=== PATIENT | male | born 1950 | race Caucasian/White ===

== ENCOUNTER 2019-05-13 06:05 | Inpatient (IN) | payer OTHER, MEDICARE ==
[2019-05-10 11:54] VITALS: BMI 29.9
--- NOTE | 2019-05-10 16:41 | HP ---
This is a patient referred to Dr. Sherwood by Dr. Birch for dyspnea on exertion. He was treated with some diuretics by Dr. Birch and then referred for further evaluation. Cardiovascular risk factors include history of hypertension, hyperlipidemia, and diabetes mellitus. The patient had a gastric bypass about 5 years ago and subsequent to that, his diabetes required no medicine as did his hypertension. However, about 2 years ago, his hypertension need to be treated with medication again. He had a cardiac echo from 2012 showing mild mitral regurgitation and a more recent cardiac echo showing mild mitral regurgitation with an EF of 45% to 50% with some diastolic dysfunction. There was exhv-oe-bocnsvab aortic valve regurgitation and no measurements for posterior wall thickness were recorded. His stress test showed an ejection fraction of 50% with anterior septal wall defect. PAST SURGICAL HISTORY: As mentioned included gastric sleeve resection in 2012. SOCIAL HISTORY: The patient is a nonsmoker, , accompanied by his . MEDICATIONS: Include; 1. Aspirin 81. 2. The new drug . 3. Escitalopram 10 mg daily. 4. Amlodipine 2.5 a day. 5. Loratadine as needed, 10 mg. 6. Prilosec 20 mg a day. ALLERGIES: HE REPORTS NO KNOWN ALLERGIES. PHYSICAL EXAMINATION: GENERAL: He is alert and cooperative gentleman, in no distress. VITAL SIGNS: Blood pressure 150/80. Weight 218, height 5 feet and 11 inches. NECK: No carotid bruits. LUNGS: Clear to auscultation. CARDIAC: Regular rate and rhythm and I did not appreciate any murmurs. ABDOMEN: Obese, soft, and nontender. EXTREMITIES: He has no edema and he has palpable pedal pulses bilaterally. NEUROLOGIC: Grossly intact. DIAGNOSTIC DATA: Cardiac catheterization shows significant LAD and diagonal disease with an irregular area in the high-grade proximal LAD suggesting perhaps an old dissection. The high diagonal has two significant lesions, the second of which is about 90%. Circumflex does not show any significant disease and the right coronary artery is normal. PLAN: At this time is for bypass grafting to the LAD, diagonal, and informed consent has been obtained. Job ID: [id number]
[2019-05-13] MEDS ORDERED: Norepinephrine 4 MG/4 ML VIAL ONE (06:27)
[2019-05-13] MEDS ORDERED: Nitroglycerin 50 MG/250 ML BOT 250 ML ONE (06:27)
[2019-05-13] MEDS ORDERED: Fentanyl 100 MCG/2 ML VIAL ONE (06:28)
[2019-05-13] MEDS ORDERED: Midazolam HCl 2 mg/2 ml Vial ONE (06:28)
[2019-05-13] MEDS ORDERED: Albumin 5% 500 ML ONE (06:33)
[2019-05-13 06:39] LABS: #Eosinphils 0.3 thou/uL (0.0-0.7); #Lymphocytes 1.7 thou/uL (1.20-3.40); #Monocytes 0.4 thou/uL (0.11-0.59); #Neutrophils 3.6 thou/uL (1.40-6.50); %Basophils 0.7 % (0.0-1.0); %Eosinophils 4.5 % (0.0-10.0); %Lymphocytes 28.6 % (21.0-51.0); %Monocytes 6.9 % (0.0-10.0); %Neutrophils 59.4 % (42.0-75.0); Mean Corpuscular HGB CONC 34.6 g/dL (32.0-36.0); Mean Corpuscular Hemoglobin 33.3 pg (27.0-31.0); Mean Corpuscular Volume 96.3 fL (78.0-98.0); Mean Platelet Volume 6.7 fL (7.4-10.4); Platelet Count 190 thou/uL (130-400); RBC Distribution Width 11.9 % (11.5-14.5)
[2019-05-13] MEDS ORDERED: Heparin 10,000 UNITS/1 ML VIAL 30,000 UNITS in Sodium Chloride 0.9% 1,000 ML FS SCH (06:45)
[2019-05-13 06:59] LABS: Anion Gap 12 mmol/L (10-20); BUN (Urea Nitrogen) 18 mg/dL (8.4-25.7); Calc. Creatinine Clearance 114 mL/min (70-130); Calcium 9.4 mg/dL (7.8-10.44); Carbon Dioxide 26 mmol/L (23-31); Chloride 101 mmol/L (98-107); Estimated GFR-MDRD 88; Glucose 110 mg/dL (80-115); Sodium 135 mmol/L (136-145)
[2019-05-13] MEDS ORDERED: Ketamine 50 MG/ML (10ML VIAL) ONE (07:14)
[2019-05-13] MEDS ORDERED: Papaverine 60 MG/2 ML VIAL ONE (08:55)
[2019-05-13] MEDS ORDERED: Sodium Bicarb 50 MEQ/50 ML Abboject 8.4% SYRINGE ONE (08:55)
[2019-05-13] MEDS ORDERED: Calcium Chloride 1 GM/10 ML Abboject SYRINGE ONE (08:55)
[2019-05-13] MEDS ORDERED: Aminocaproic Acid 5 GM/20 ML VIAL ONE (08:55)
[2019-05-13] MEDS ORDERED: Protamine Sulfate 250 MG/25 ML VIAL ONE (08:55)
[2019-05-13] MEDS ORDERED: Heparin 30,000 units/30 ml VIAL ONE (08:55)
[2019-05-13] MEDS ORDERED: Lidocaine 1% PF 5 ML VIAL ONE (08:55)
[2019-05-13] MEDS ORDERED: PROPOFOL 200 MG/20 ML VIAL ONE (08:55)
[2019-05-13] MEDS ORDERED: Magnesium Sulfate 1 GM/2 ML VIAL ONE (08:55)
[2019-05-13] MEDS ORDERED: Potassium Chloride 60 MEQ/30 ML VIAL ONE (08:55)
[2019-05-13] MEDS ORDERED: Vecuronium 10 MG VIAL ONE (08:55)
[2019-05-13] MEDS ORDERED: Heparin 5,000 UNITS/ML VIAL ONE (08:55)
[2019-05-13] MEDS ORDERED: Rocuronium Bromide 10 MG/ML (10ML VIAL) ONE (08:55)
[2019-05-13] MEDS ORDERED: Thrombin 5000 UNITS/5 ML VIAL ONE (08:55)
[2019-05-13] MEDS ORDERED: Glycopyrrolate 0.2 MG/ML 5 ML SYRINGE ONE (08:55)
[2019-05-13] MEDS ORDERED: Cardioplegic Soln 1,000 ML BAG ONE (08:55)
[2019-05-13] MEDS ORDERED: Lidocaine 2% PF 5 ML VIAL ONE (08:55)
[2019-05-13] MEDS ORDERED: Insulin Regular 300 UNITS/3 ML VIAL ONE (09:36)
[2019-05-13] MEDS ORDERED: PROPOFOL 40 ML ONE (10:33)
[2019-05-13] MEDS ORDERED: Bisacodyl 10 MG SUPP PR PRN (10:56)
[2019-05-13] MEDS ORDERED: niCARdipine 25 MG in Sodium Chloride 0.9% 250 ML 250 ML IVPB PRN (10:56)
[2019-05-13] MEDS ORDERED: Mag-Al 1200 mg/1200 mg/30 ML UDCUP PO PRN (10:56)
[2019-05-13] MEDS ORDERED: Morphine 2 MG/ML SYRINGE SLOW IVP PRN (10:56)
[2019-05-13] MEDS ORDERED: HYDROcodone/Acetaminophen 5/325 mg Tablet PO PRN (10:56)
[2019-05-13] MEDS ORDERED: Norepinephrine 8 MG/0.9% NS 250 ML IVPB PRN (10:56)
[2019-05-13] MEDS ORDERED: Bisacodyl 5 MG TAB PO PRN (10:56)
[2019-05-13] MEDS ORDERED: Fentanyl 100 MCG/2 ML VIAL SLOW IVP PRN ×2 (10:56)
[2019-05-13] MEDS ORDERED: Nitroglycerin 50 MG/250 ML BOT 250 ML IVPB PRN (10:56)
[2019-05-13] MEDS ORDERED: Promethazine HCl 25 MG/ML VIAL IM PRN (10:56)
[2019-05-13] MEDS ORDERED: Potassium Chloride 20 MEQ/100 ML PREMIX BAG IVPB PRN (10:56)
[2019-05-13] MEDS ORDERED: hydrALAZINE 20 MG/ML VIAL SLOW IVP PRN (10:56)
[2019-05-13] MEDS ORDERED: DOPamine 400 MG/D5W 250 ML 250 ML IVPB PRN (10:56)
[2019-05-13] MEDS ORDERED: Hetastarch 6% 500 ML 500 ML IVPB PRN (10:56)
[2019-05-13] MEDS ORDERED: Post-Op Insulin Drip Protocol IVPB ONE (10:56)
[2019-05-13] MEDS ORDERED: Acetaminophen 325 MG TAB PO PRN (10:56)
[2019-05-13] MEDS ORDERED: Guaifenesin DM 100-10/5 ML UDCUP PO PRN (10:56)
[2019-05-13] MEDS ORDERED: Ondansetron PF 4 MG/2 ML Vial IVP PRN (10:56)
[2019-05-13] MEDS ORDERED: Magnesium 2 GM/50 ML 2 GM in Premix Bag 1 BAG IVPB SCH (11:00)
[2019-05-13 11:05] LABS: Base Excess (BEa) 0.8 mEq/L (-2.0 to +3.0); CO2 Tension 38.2 mmHg (35.0-45.0); Carboxyhemoglobin (COHb) 0.4 gm% (0.0-3.0); Hemoglobin (Hb) 11.8 g/dL (14.0-18.0); O2 Tension (PaO2) 186.6 mmHg (> 80.0); pH, Arterial 7.43 (7.35-7.45)
[2019-05-13 11:07] LABS: Puncture Site ALINE
[2019-05-13] MEDS ORDERED: HUMULIN R 100 UNITS in Sodium Chloride 0.9% 100 ML IVPB SCH (11:10)
[2019-05-13] MEDS ORDERED: Dextrose 5% in Water 1,000 ML IV PRN (11:10)
[2019-05-13] MEDS ORDERED: Dextrose 50% Abboject 50 ML SYRINGE SLOW IVP PRN (11:10)
[2019-05-13] MEDS: Lactated Ringer's 1,000 ML IV SCH (11:22)
[2019-05-13 11:23] LABS: #Eosinphils 0.2 thou/uL (0.0-0.7); #Lymphocytes 1.3 thou/uL (1.20-3.40); #Monocytes 0.6 thou/uL (0.11-0.59); #Neutrophils 8.5 thou/uL (1.40-6.50); %Basophils 0.4 % (0.0-1.0); %Eosinophils 1.7 % (0.0-10.0); %Lymphocytes 12.5 % (21.0-51.0); %Monocytes 5.2 % (0.0-10.0); %Neutrophils 80.2 % (42.0-75.0); Hemoglobin 11.5 g/dL (14.0-18.0); Mean Corpuscular HGB CONC 34.4 g/dL (32.0-36.0); Mean Corpuscular Hemoglobin 33.2 pg (27.0-31.0); Mean Corpuscular Volume 96.4 fL (78.0-98.0); Mean Platelet Volume 6.5 fL (7.4-10.4); Platelet Count 141 thou/uL (130-400); RBC Distribution Width 11.7 % (11.5-14.5); Red Blood Cell (RBC) Count 3.45 mill/uL (4.70-6.10); White Blood Cell (WBC) Count 10.6 thou/uL (4.8-10.8)
[2019-05-13 11:27] LABS: INR-International Normal Ratio 1.1; PTT 25.2 SEC (22.9-36.1); Prothrombin Time 14.5 SEC (12.0-14.7)
[2019-05-13] MEDS: Ketorolac Tromethamine 30 MG/ML VIAL IVP SCH ×3 (11:27→23:11)
[2019-05-13 11:49] LABS: Anion Gap 10 mmol/L (10-20); BUN (Urea Nitrogen) 17 mg/dL (8.4-25.7); Calc. Creatinine Clearance 122 mL/min (70-130); Calcium 7.7 mg/dL (7.8-10.44); Carbon Dioxide 24 mmol/L (23-31); Chloride 107 mmol/L (98-107); Estimated GFR-MDRD Greater than 90; Glucose 114 mg/dL (80-115); Potassium 4.1 mmol/L (3.5-5.1); Sodium 137 mmol/L (136-145)
--- NOTE | 2019-05-13 12:27 | OP ---
DATE OF PROCEDURE: 05/13/2019 PREOPERATIVE DIAGNOSIS: Coronary artery disease. POSTOPERATIVE DIAGNOSIS: Coronary artery disease. PROCEDURES PERFORMED: Coronary artery bypass graft x2, left internal mammary artery good flow to a 2 mm left anterior descending, saphenous vein good quality to a 1.5 mm diagonal. DIRECTOR OF CORPORATE COMMUNICATIONS: Mike. TRANSFUSION: None. DESCRIPTION OF PROCEDURE: After adequate anesthesia had been obtained, the patient was prepped and draped. Dr. Mckeon did an open vein harvest of the left greater saphenous vein and I performed a median sternotomy. The left internal mammary artery was harvested, following which, the patient was heparinized. The patient required an additional 20,000 units of heparin after his initial 29,000. Mammary was treated with papaverine and passed posterior to a very prominent thymus gland and his lungs are somewhat hyperinflated and crossed the midline with the cardiac structures being deep to this. Pericardium was opened and there was symphysis between the heart and the pericardium from previous pericarditis. Sharply, this was mobilized to allow traction sutures to be placed in the pericardium. Aorta and right atrium were cannulated, following which, cardiopulmonary bypass was begun. The aorta was cross-clamped and after a liter of cold blood cardioplegia had been given, further adhesions were taken down sharply and bluntly. Diagonal and LAD were opened and saphenous vein and TIWARI were anastomosed to these two vessels, following which the cross-clamp was removed. The partial occluding clamp placed and a single vein anastomosis performed on the aortic root and marked with a ring. The patient was then fully rewarmed and weaned from cardiopulmonary bypass. Cannula was removed and the aortic cannulation site was secured with a 4-0 Prolene suture. Mediastinal and left pleural drains were placed, following which the sternum was reapproximated with #7 interrupted wire. Vancomycin paste was used on the sternal edges, platelet-rich blood and platelet-poor plasma. Subcutaneous tissue and skin were closed in layers. Job ID: [id number]
--- NOTE | 2019-05-13 12:39 | RAD ---
PORTABLE CHEST: Date: 05/13/2019 HISTORY: Postop sternotomy. COMPARISON: 07/19/2012. FINDINGS: Postop sternotomy change. Central line overlies the right atrium. Chest drainage catheters. ET tube. Lungs appear clear with no infiltrate or vascular congestion. Right rib deformities from old fracture s again noted. IMPRESSION: No acute lung process. POS: [facility]
[2019-05-13] MEDS: Insulin Regular 300 UNITS/3 ML VIAL SC PRN ×3 (12:54→20:30)
--- NOTE | 2019-05-13 13:51 | PDOC.CPN ---
- Subjective Date: 05/13/19 Time: 12:15 - Review of Systems ROS unobtainable: due to endotracheal tube - Objective Allergies/Adverse Reactions: Allergies Allergy/AdvReac Type Severity Reaction Status Date / Time No Known Drug Allergies Allergy Verified 05/10/19 11:54 Visit Medications: Current Medications Acetaminophen (Tylenol) 650 mg PO Q6H PRN PRN Reason: Headache/Fever Or Mild Pain Hydrocodone Bitart/Acetaminophen ([place] 5/325) 1 tab PO Q4H PRN PRN Reason: Moderate Pain (4-6) Hydrocodone Bitart/Acetaminophen ([place] 5/325) 2 tab PO Q4H PRN PRN Reason: Severe Pain (7-10) Al Hydroxide/Mg Hydroxide (Maalox) 30 ml PO Q4H PRN PRN Reason: Indigestion Albumin Human (Albumin 5%) 12.5 gm IVPB Q6H PRN PRN Reason: To Maintain SBP> 90 mmHG Stop: 05/14/19 10:57 Last Admin: 05/13/19 12:15 Dose: 12.5 gm Albumin Human (Albumin 5%) 25 gm IVPB Q6H PRN PRN Reason: To Maintain SBP > 90 mmHG Stop: 05/14/19 10:57 Albuterol/Ipratropium (Duoneb) 3 ml NEB Q6H PRN PRN Reason: SHORTNESS OF BREATH Aspirin (Aspirin) 325 mg PO DAILY [facility] Bisacodyl (Dulcolax) 10 mg PO Q12H PRN PRN Reason: Constipation Bisacodyl (Dulcolax) 10 mg UT Q12H PRN PRN Reason: Constipation Dextrose/Water (Dextrose 50%) 25 gm SLOW IVP PRN PRN PRN Reason: PER HYPOGLYCEMIC PROTOCOL Famotidine (Pepcid) 20 mg SLOW IVP Q12HR [facility] Fentanyl (Sublimaze) 25 mcg SLOW IVP Q2H PRN PRN Reason: Moderate Pain (4-6) Stop: 05/15/19 10:47 Fentanyl (Sublimaze) 50 mcg SLOW IVP Q2H PRN PRN Reason: Severe Pain (7-10) Stop: 05/15/19 10:47 Glucagon (Glucagon) 1 mg SC PRN PRN PRN Reason: PER HYPOGLYCEMIC PROTOCOL Guaifenesin/Dextromethorphan (Robitussin Dm) 15 ml PO Q4H PRN PRN Reason: Cough Hydralazine HCl (Apresoline) 10 mg SLOW IVP Q6H PRN PRN Reason: To Maintain SBP< 140mmHG Cefazolin Sodium/Dextrose 2 gm (/ Device) 50 mls @ 100 mls/hr IVPB Q8H [facility] Stop: 05/14/19 07:29 Dopamine HCl/Dextrose (Dopamine 400 Mg/D5w 250 Ml) 250 mls @ 0 mls/hr IVPB PRN PRN; Protocol PRN Reason: To maintain SBP > 90 mmHG Hetastarch/Sodium Chloride (Hespan) 500 mls @ 0 mls/hr IVPB PRN PRN PRN Reason: To Maintain SBP > 90mmHg Stop: 05/14/19 10:47 Lactated Ringer's (Lactated Ringer's) 1,000 mls @ 75 mls/hr IV .[id number] [facility] Last Admin: 05/13/19 11:22 Dose: 1,000 mls Norepinephrine Bitartrate (Levophed) 250 mls @ 0 mls/hr IVPB PRN PRN; Protocol PRN Reason: To maintain SBP > 90 mmHG Nicardipine HCl 25 mg/ Sodium (Chloride) 260 mls @ 0 mls/hr IVPB INF PRN; Protocol PRN Reason: To Maintain SBP< 140mmHG Nitroglycerin/Dextrose (Nitroglycerin 50 Mg/250 Ml Bot) 250 mls @ 0 mls/hr IVPB PRN PRN; Protocol PRN Reason: To Maintain SBP< 140mmHG Insulin Human Regular 100 (units/ Sodium Chloride) 101 mls @ 0 mls/hr IVPB INF [facility]; Protocol Dextrose/Water (D5w) 1,000 mls @ 0 mls/hr IV INF PRN PRN Reason: PRN HYPOGLYCEMIC PROTOCOL Insulin Glargine (Lantus) 0 units SC ONE PRN PRN Reason: PER OPEN HEART ORDERS Stop: 05/14/19 11:11 Insulin Human Regular (Humulin R) 0 units SC Q4H PRN; Protocol PRN Reason: POST OP SLIDING SCALE Last Admin: 05/13/19 12:54 Dose: 2 unit Ketorolac Tromethamine (Toradol) 15 mg IVP Q6HR [facility] Stop: 05/14/19 12:01 Last Admin: 05/13/19 11:27 Dose: 15 mg Morphine Sulfate (Morphine) 2 mg SLOW IVP Q15MIN PRN PRN Reason: Severe Pain (7-10) Ondansetron HCl (Zofran) 4 mg IVP Q6H PRN PRN Reason: Nausea/Vomiting Polyethylene Glycol (Miralax) 17 gm PO DAILY [facility] Potassium Chloride (Kcl) 20 meq IVPB PRN PRN PRN Reason: K level </= 4.0 Last Admin: 05/13/19 11:51 Dose: 20 meq Promethazine HCl (Phenergan) 6.25 mg IM Q4H PRN PRN Reason: Nausea/Vomiting Vital Signs & Weight: Vital Signs Temp Pulse Resp BP Pulse Ox 05/13/19 12:00 15 05/13/19 11:00 96.6 F L 05/13/19 10:58 46 L 13 90/53 L 99 05/13/19 10:56 96.6 F L 47 L 12 99 Weight 215 lb - Physical Exam General: other (pt. back from the OR after CABG LAD,Diag.) HEENT: normocephaly Neck: no JVD/HJR Cardiac: regular rate and rhythm, no murmur, bradycardia Lungs: clear to auscultation, ventilated respirations Abdomen: unremarkable Extremities: no edema - Labs Result Diagrams: 05/13/19 11:07 05/13/19 11:07 - Telemetry Sinus rhythms and dysrhythmias: sinus bradycardia (< 50 bpm) - Assessment/Plan Assessment/Plan: 1. CAD- s/p CABG today. LAD, Diag bypass. 2. AI- stable. 3. HTN-stable. 4. Bradycardia. Hold betablockers. May eventually need a pacemaker.
[2019-05-13] MEDS: CEFAZOLIN 2 GM in Premix Bag 1 BAG IVPB SCH ×2 (15:50→23:12)
[2019-05-13 15:53] LABS: Base Excess (BEa) 1.1 mEq/L (-2.0 to +3.0); CO2 Tension 42.5 mmHg (35.0-45.0); Calcium, Ionized 1.12 mmol/L (1.12-1.30); Carboxyhemoglobin (COHb) 0.7 gm% (0.0-3.0); Hemoglobin (Hb) 12.5 g/dL (14.0-18.0); O2 Tension (PaO2) 113.3 mmHg (> 80.0); Potassium - ABG Lab 4.34 mmol/L (3.70-5.30); pH, Arterial 7.41 (7.35-7.45)
[2019-05-13 16:14] LABS: ALV-art Gradient 118.775 (0-20); Puncture Site ALINE
[2019-05-13 16:55] LABS: Hemoglobin 12.1 g/dL (14.0-18.0)
[2019-05-13 17:10] LABS: Potassium 4.2 mmol/L (3.5-5.1)
[2019-05-13] MEDS: HYDROcodone/Acetaminophen 5/325 mg Tablet PO PRN (20:45)
[2019-05-13] MEDS ORDERED: Famotidine/PF 20 mg/2ml Vial SLOW IVP SCH (21:00)
--- NOTE | 2019-05-13 22:00 | CON ---
DATE OF CONSULTATION: 05/13/2019 HISTORY OF PRESENT ILLNESS: Mr. Walton is a 68-year-old male who has undergone coronary artery bypass grafting. He was examined after he was admitted to the critical care unit. He is waking up from anesthesia. We were consulted because of his presence to critical care unit. PAST MEDICAL HISTORY: Remarkable for; 1. Gastric bypass 5 years ago with resolution of diabetes and hypertension for a while, but then apparently his hypertension had to be treated. 2. History of mitral regurgitation and decreased ejection fraction with [id number] aortic valve regurgitation. 3. Recent cardiac catheterization with results noted in Dr. Barker's note. FAMILY HISTORY: Negative for lung disease in early age. SOCIAL HISTORY: Not obtainable. REVIEW OF SYSTEMS: 10 point review of systems completed, not obtainable. PHYSICAL EXAMINATION: VITAL SIGNS: His heart rate was in the 70s, respiratory rate was in the teens, blood pressure was stable at 127/48. GENERAL: He is awakening, but would not follow any commands. He did not make eye contact. EYES: His sclerae are anicteric. NECK: Supple. LUNGS: Clear. HEART: Regular rhythm. ABDOMEN: Soft. EXTREMITIES: Without edema. LABORATORY DATA: White count 10.6, hemoglobin 11.5, platelets 141. Sodium 137, potassium 4.1, chloride 107, bicarb 24, BUN 17, creatinine 0.81. PH 7.41, CO2 of 42, and PO2 of 113 on CPAP this afternoon. IMPRESSION: Status post coronary artery bypass grafting. Chest x-ray shows no infiltrates or pulmonary edema or pleural effusions. I suspect he will wean per protocol. TIME SPENT: This is a 50-minute consult, with greater than 50% of the time was spent on the unit coordinating care. Job ID: [id number] MTDD
[2019-05-14] MEDS: Lactated Ringer's 1,000 ML IV SCH (01:21)
[2019-05-14 04:06] LABS: #Eosinphils 0.1 thou/uL (0.0-0.7); #Lymphocytes 1.5 thou/uL (1.20-3.40); #Monocytes 0.7 thou/uL (0.11-0.59); #Neutrophils 5.9 thou/uL (1.40-6.50); %Basophils 0.2 % (0.0-1.0); %Eosinophils 0.7 % (0.0-10.0); %Lymphocytes 18.2 % (21.0-51.0); %Monocytes 8.5 % (0.0-10.0); %Neutrophils 72.4 % (42.0-75.0); Hemoglobin 11.4 g/dL (14.0-18.0); Mean Corpuscular HGB CONC 34.2 g/dL (32.0-36.0); Mean Corpuscular Hemoglobin 33.5 pg (27.0-31.0); Mean Corpuscular Volume 97.9 fL (78.0-98.0); Mean Platelet Volume 6.7 fL (7.4-10.4); Platelet Count 126 thou/uL (130-400); RBC Distribution Width 11.8 % (11.5-14.5); White Blood Cell (WBC) Count 8.1 thou/uL (4.8-10.8)
[2019-05-14 04:27] LABS: Anion Gap 10 mmol/L (10-20); BUN (Urea Nitrogen) 14 mg/dL (8.4-25.7); Calc. Creatinine Clearance 131 mL/min (70-130); Calcium 8.2 mg/dL (7.8-10.44); Carbon Dioxide 28 mmol/L (23-31); Chloride 103 mmol/L (98-107); Estimated GFR-MDRD Greater than 90; Glucose 110 mg/dL (80-115); Potassium 4.1 mmol/L (3.5-5.1); Sodium 137 mmol/L (136-145)
[2019-05-14] MEDS: HYDROcodone/Acetaminophen 5/325 mg Tablet PO PRN ×5 (04:56→23:24)
[2019-05-14] MEDS: Ketorolac Tromethamine 30 MG/ML VIAL IVP SCH (04:56)
[2019-05-14] MEDS: CEFAZOLIN 2 GM in Premix Bag 1 BAG IVPB SCH (06:25)
--- NOTE | 2019-05-14 07:13 | PRG ---
DATE OF SERVICE: The patient is afebrile. Blood pressure 120 to 130, heart rate 70 to 80. He is up in the chair this morning and denies any significant discomfort. His chest tube output is between 270 and 300 since surgery. His hemoglobin is greater than 11. Creatinine normal. His lungs are clear to auscultation. At this time, the patient is stable to transfer to the floor. Job ID: [id number]
[2019-05-14] MEDS ORDERED: Nitroglycerin 0.4 MG TAB (25 Tab Bottle) SL PRN (07:20)
[2019-05-14] MEDS ORDERED: Bisacodyl 5 MG TAB PO PRN (07:20)
[2019-05-14] MEDS ORDERED: Mag-Al 1200 mg/1200 mg/30 ML UDCUP PO PRN (07:20)
[2019-05-14] MEDS ORDERED: Fentanyl 100 MCG/2 ML VIAL SLOW IVP PRN ×2 (07:20)
[2019-05-14] MEDS ORDERED: Ondansetron PF 4 MG/2 ML Vial IVP PRN (07:20)
[2019-05-14] MEDS ORDERED: Mineral Oil ENEMA PR PRN (07:20)
[2019-05-14] MEDS ORDERED: Bisacodyl 10 MG SUPP PR PRN (07:20)
[2019-05-14] MEDS ORDERED: Acetaminophen 325 MG TAB PO PRN (07:20)
[2019-05-14] MEDS ORDERED: Milk Of Magnesia 30 ML UDCUP PO PRN (07:20)
[2019-05-14] MEDS ORDERED: Guaifenesin DM 100-10/5 ML UDCUP PO PRN (07:20)
[2019-05-14] MEDS ORDERED: Insulin Regular 300 UNITS/3 ML VIAL SC PRN (07:22)
[2019-05-14] MEDS ORDERED: Dextrose 50% Abboject 50 ML SYRINGE SLOW IVP PRN (07:22)
[2019-05-14] MEDS ORDERED: Dextrose 5% in Water 1,000 ML IV PRN (07:22)
[2019-05-14] MEDS ORDERED: HUMULIN R 100 UNITS in Sodium Chloride 0.9% 100 ML IVPB SCH (07:22)
--- NOTE | 2019-05-14 07:22 | RAD ---
SINGLE VIEW CHEST: Date: 05/14/2019 COMPARISON: 05/13/2019. HISTORY: Status post open heart surgery. FINDINGS: Single view of the chest shows an enlarged cardiomediastinal silhouette. The patient is status post s ternotomy. Endotracheal tube has been removed. Central venous catheter is unchanged in position. Left -sided chest tube without evidence of pneumothorax. IMPRESSION: Stable exam status post extubation. POS: [facility]
[2019-05-14] MEDS: Aspirin 325 mg Enteric Coated Tablet PO SCH (08:24)
[2019-05-14] MEDS: Famotidine 20 MG TAB PO SCH ×2 (08:24→21:23)
[2019-05-14] MEDS: Polyethylene Glycol 3350 17 GM Packet PO SCH (08:25)
[2019-05-14] MEDS ORDERED: Prevnar 13-Val Conj/PF 0.5 ML SYRINGE IM ONE (09:00)
[2019-05-14] MEDS ORDERED: Polyethylene Glycol 3350 17 GM Packet PO SCH (09:00)
[2019-05-14] MEDS ORDERED: Aspirin 325 MG TAB PO SCH (09:00)
[2019-05-14] MEDS ORDERED: Amlodipine 5 MG TAB PO SCH ×3 (10:30→11:00)
--- NOTE | 2019-05-14 10:34 | PDOC.CPN ---
- Subjective Date: 05/14/19 Time: 10:30 - Review of Systems General: reports: fever/chills, fatigue Respiratory: reports: cough, congestion, shortness of breath Cardiovascular: reports: chest pain, edema, orthopnea Gastrointestinal: reports: nausea, vomiting, abd pain Musculoskeletal: reports: pain, swelling Neurological: reports: numbness, weakness - Objective Allergies/Adverse Reactions: Allergies Allergy/AdvReac Type Severity Reaction Status Date / Time No Known Drug Allergies Allergy Verified 05/10/19 11:54 Visit Medications: Current Medications Acetaminophen (Tylenol) 650 mg PO Q6H PRN PRN Reason: Headache/Fever/Pain (1-3) Hydrocodone Bitart/Acetaminophen ([place] 5/325) 1 tab PO Q4H PRN PRN Reason: Moderate Pain (4-6) Last Admin: 05/14/19 09:11 Dose: 1 tab Hydrocodone Bitart/Acetaminophen ([place] 5/325) 2 tab PO Q4H PRN PRN Reason: Severe Pain (7-10) Al Hydroxide/Mg Hydroxide (Maalox) 30 ml PO Q4H PRN PRN Reason: Indigestion Albuterol/Ipratropium (Duoneb) 3 ml NEB Q6H PRN PRN Reason: Respiratory Distress Amlodipine Besylate (Norvasc) 2.5 mg PO DAILY [facility] Amlodipine Besylate (Norvasc) 2.5 mg PO NOW [facility] Stop: 05/14/19 12:00 Aspirin (Ecotrin) 325 mg PO DAILY [facility] Last Admin: 05/14/19 08:24 Dose: 325 mg Bisacodyl (Dulcolax) 10 mg PO Q12H PRN PRN Reason: Constipation Bisacodyl (Dulcolax) 10 mg MS Q12H PRN PRN Reason: Constipation Dextrose/Water (Dextrose 50%) 25 gm SLOW IVP PRN PRN PRN Reason: PER HYPOGLYCEMIC PROTOCOL Famotidine (Pepcid) 20 mg PO BID [facility] Last Admin: 05/14/19 08:24 Dose: 20 mg Fentanyl (Sublimaze) 25 mcg SLOW IVP Q2H PRN PRN Reason: Moderate breakthrough pain Stop: 05/16/19 07:21 Fentanyl (Sublimaze) 50 mcg SLOW IVP Q2H PRN PRN Reason: Severe breakthrough pain Stop: 05/16/19 07:21 Furosemide (Lasix) 40 mg PO DAILY [facility] Glucagon (Glucagon) 1 mg SC PRN PRN PRN Reason: PER HYPOGLYCEMIC PROTOCOL Guaifenesin/Dextromethorphan (Robitussin Dm) 15 ml PO Q4H PRN PRN Reason: Cough Insulin Human Regular 100 (units/ Sodium Chloride) 101 mls @ 0 mls/hr IVPB INF [facility]; Protocol Dextrose/Water (D5w) 1,000 mls @ 0 mls/hr IV INF PRN PRN Reason: PRN HYPOGLYCEMIC PROTOCOL Insulin Glargine (Lantus) 0 units SC ONE PRN PRN Reason: PER OPEN HEART ORDERS Stop: 05/15/19 07:23 Insulin Human Regular (Humulin R) 0 units SC Q4H PRN; Protocol PRN Reason: POST OP SLIDING SCALE Magnesium Hydroxide (Milk Of Magnesium) 30 ml PO Q12H PRN PRN Reason: Constipation Mineral Oil (Fleet Mineral Oil) 133 ml MS DAILYPRN PRN PRN Reason: Constipation Nitroglycerin (Nitrostat) 0.4 mg SL Q5MIN PRN PRN Reason: Chest Pain Ondansetron HCl (Zofran) 4 mg IVP Q6H PRN PRN Reason: Nausea/Vomiting Polyethylene Glycol (Miralax) 17 gm PO DAILY [facility] Last Admin: 05/14/19 08:25 Dose: 17 gm Potassium Chloride (Klor-Con 10) 10 meq PO QAM-[facility] Vital Signs & Weight: Vital Signs Temp Pulse Pulse Pulse Resp BP BP 05/14/19 09:39 60 62 162/82 H 159/83 H 05/14/19 09:28 97.8 F 60 18 05/14/19 08:00 98.5 F 05/14/19 07:03 BP Pulse Ox Pulse Ox Pulse Ox 05/14/19 09:39 97 96 05/14/19 09:28 162/82 H 98 05/14/19 08:00 96 05/14/19 07:03 96 Weight 232 lb 12.93 oz - Quality Measures CV meds: Beta Varinder: No (pt. has bradycardia), JOSEFINA/ARB: Yes, Statin: Yes, ASA : Yes - Physical Exam HEENT: normocephaly Neck: supple neck, no JVD/HJR Cardiac: regular rate and rhythm, no murmur Lungs: clear to auscultation Neuro: grossly intact Abdomen: unremarkable Extremities: no edema Musculoskeletal: normal range of motion (sternum stable.) - Labs Result Diagrams: 05/14/19 03:45 05/14/19 03:45 - Assessment/Plan Assessment/Plan: 1. CAD. S/P CABG. LAD,diag. 2. HTN. Start norvasc. Hold betablockers due to bradycardia. 3. Bradycardia. Asymptomatic. 4. Start statins.
[2019-05-14] MEDS: Amlodipine 5 MG TAB PO SCH (11:35)
[2019-05-15] MEDS: HYDROcodone/Acetaminophen 5/325 mg Tablet PO PRN ×4 (03:50→18:27)
--- NOTE | 2019-05-15 07:11 | PRG ---
DATE OF SERVICE: 05/15/2019 SUBJECTIVE: He is now postoperative day #2 following coronary artery bypass grafting x2 to the LAD diagonal. He had no laboratory values. His sugars have been satisfactory. His blood pressure has been up slightly in the 150 to 170 range with a heart rate in the 60s, sinus rhythm. Chest tube output was minimal and his two chest drains were removed today. His weight is 232 compared to 215. Lungs are clear. Chest dressing is dry. PLAN: Today shower. Rehab. Begin oral Lasix and start low-dose lisinopril. As noted by Dr. Sherwood, hold beta-blockers for now. Job ID: [id number]
--- NOTE | 2019-05-15 08:22 | PDOC.CPN ---
- Subjective Date: 05/15/19 Time: 08:25 Interval history: The pt seen and examined. No overnight events. No cardiac complaints. He had 1 episode of bad cough spell yesterday. - Objective Allergies/Adverse Reactions: Allergies Allergy/AdvReac Type Severity Reaction Status Date / Time No Known Drug Allergies Allergy Verified 05/10/19 11:54 Visit Medications: Current Medications Acetaminophen (Tylenol) 650 mg PO Q6H PRN PRN Reason: Headache/Fever/Pain (1-3) Hydrocodone Bitart/Acetaminophen ([place] 5/325) 1 tab PO Q4H PRN PRN Reason: Moderate Pain (4-6) Last Admin: 05/14/19 19:02 Dose: 1 tab Hydrocodone Bitart/Acetaminophen ([place] 5/325) 2 tab PO Q4H PRN PRN Reason: Severe Pain (7-10) Last Admin: 05/15/19 03:50 Dose: 2 tab Al Hydroxide/Mg Hydroxide (Maalox) 30 ml PO Q4H PRN PRN Reason: Indigestion Albuterol/Ipratropium (Duoneb) 3 ml NEB Q6H PRN PRN Reason: Respiratory Distress Amlodipine Besylate (Norvasc) 2.5 mg PO DAILY [facility] Last Admin: 05/14/19 11:35 Dose: 2.5 mg Aspirin (Ecotrin) 325 mg PO DAILY [facility] Last Admin: 05/14/19 08:24 Dose: 325 mg Bisacodyl (Dulcolax) 10 mg PO Q12H PRN PRN Reason: Constipation Bisacodyl (Dulcolax) 10 mg PA Q12H PRN PRN Reason: Constipation Dextrose/Water (Dextrose 50%) 25 gm SLOW IVP PRN PRN PRN Reason: PER HYPOGLYCEMIC PROTOCOL Famotidine (Pepcid) 20 mg PO BID [facility] Last Admin: 05/14/19 21:23 Dose: Not Given Fentanyl (Sublimaze) 25 mcg SLOW IVP Q2H PRN PRN Reason: Moderate breakthrough pain Stop: 05/16/19 07:21 Fentanyl (Sublimaze) 50 mcg SLOW IVP Q2H PRN PRN Reason: Severe breakthrough pain Stop: 05/16/19 07:21 Furosemide (Lasix) 40 mg PO DAILY [facility] Glucagon (Glucagon) 1 mg SC PRN PRN PRN Reason: PER HYPOGLYCEMIC PROTOCOL Guaifenesin/Dextromethorphan (Robitussin Dm) 15 ml PO Q4H PRN PRN Reason: Cough Insulin Human Regular 100 (units/ Sodium Chloride) 101 mls @ 0 mls/hr IVPB INF [facility]; Protocol Dextrose/Water (D5w) 1,000 mls @ 0 mls/hr IV INF PRN PRN Reason: PRN HYPOGLYCEMIC PROTOCOL Insulin Human Regular (Humulin R) 0 units SC Q4H PRN; Protocol PRN Reason: POST OP SLIDING SCALE Lisinopril (Zestril) 5 mg PO BID [facility] Magnesium Hydroxide (Milk Of Magnesium) 30 ml PO Q12H PRN PRN Reason: Constipation Mineral Oil (Fleet Mineral Oil) 133 ml [place] DAILYPRN PRN PRN Reason: Constipation Nitroglycerin (Nitrostat) 0.4 mg SL Q5MIN PRN PRN Reason: Chest Pain Ondansetron HCl (Zofran) 4 mg IVP Q6H PRN PRN Reason: Nausea/Vomiting Polyethylene Glycol (Miralax) 17 gm PO DAILY [facility] Last Admin: 05/14/19 08:25 Dose: 17 gm Potassium Chloride (Klor-Con 10) 10 meq PO QAM[facility] Vital Signs & Weight: Vital Signs Temp Pulse Resp BP Pulse Ox 05/15/19 07:46 95 05/15/19 07:24 98.5 F 68 18 169/82 H 94 L 05/15/19 03:40 98.6 F 64 20 152/79 H 92 L 05/15/19 00:18 97 Weight 232 lb 6.4 oz - Quality Measures CV meds: Beta Varinder: No (pt. has bradycardia), JOSEFINA/ARB: Yes, Statin: Yes, ASA : Yes - Physical Exam General: alert & oriented x3 HEENT: mucus membranes moist Neck: supple neck Cardiac: regular rate and rhythm, S1/S2 Lungs: decreased breath sounds Neuro: cranial nerve 2-12 intact - Labs Result Diagrams: 05/14/19 03:45 05/14/19 03:45 - Telemetry Sinus rhythms and dysrhythmias: sinus rhythm - Assessment/Plan Assessment/Plan: 1. CAD with S/P CABG on 05/13/2019 with TIWARI-LAD and SVG-diag - BBlocker is on hold due to bradycardia. On Lisinopirl, ASA, Statin. 2. HTN - Lisinopril 5mg BID was started from this AM; On Norvasc. Hold betablockers due to bradycardia. 3. Bradycardia. Asymptomatic. 4. HLD - LDL in 2018 was 161; not on Statin prior to this admission; will start statins. 5. Sleep Apnea - on Cpap at [facility] reviewed Pt. seen and eval. by me. I agree with the A/P by the OPERATIONS AND MAINTENANCE TECHNICIAN. Chest tubes removed this AM. Will d/c jailene. He has done well post CABG except for increased BP. Will increase josefina-i and Norvasc. Prob. home in 1-2 days. no arrhythmias.
[2019-05-15] MEDS: Aspirin 325 mg Enteric Coated Tablet PO SCH (09:26)
[2019-05-15] MEDS: Famotidine 20 MG TAB PO SCH ×2 (09:26→20:37)
[2019-05-15] MEDS: Furosemide 40 MG TAB PO SCH (09:26)
[2019-05-15] MEDS: Potassium Chloride 10 MEQ TAB PO SCH (09:26)
[2019-05-15] MEDS: Lisinopril 5 MG TAB PO SCH ×2 (09:27→20:38)
[2019-05-15] MEDS: Amlodipine 5 MG TAB PO SCH (09:27)
[2019-05-15] MEDS ORDERED: Amlodipine 5 MG TAB PO SCH (12:45)
[2019-05-15] MEDS: Polyethylene Glycol 3350 17 GM Packet PO SCH (13:10)
[2019-05-15] MEDS ORDERED: Atorvastatin Calcium 10 MG TAB PO SCH (21:00)
[2019-05-16] MEDS: HYDROcodone/Acetaminophen 5/325 mg Tablet PO PRN ×3 (03:34→13:11)
--- NOTE | 2019-05-16 07:17 | PRG ---
DATE OF SERVICE: 05/16/2019 SUBJECTIVE: The patient remains afebrile. He had one episode of transient drop in his blood pressure below 100 yesterday with the addition yesterday of Norvasc and lisinopril. Otherwise, he states he had a good day yesterday, ambulated without difficulty and rested well. He awakened about 3 a.m. this morning with some discomfort and was relieved with pain medicine. His lungs are clear this morning. His chest incision is clean and dry and his legs have no edema. His recorded weight is 224 compared with 215 on admission and down from 232. He remains on the Lasix. PLAN: Plan is for one more day and probably discharge in the morning if he is continuing to improve. Job ID: [id number]
[2019-05-16] MEDS: Polyethylene Glycol 3350 17 GM Packet PO SCH (08:28)
[2019-05-16] MEDS: Potassium Chloride 10 MEQ TAB PO SCH (08:28)
[2019-05-16] MEDS: Aspirin 325 mg Enteric Coated Tablet PO SCH (08:29)
[2019-05-16] MEDS: Famotidine 20 MG TAB PO SCH (08:29)
[2019-05-16] MEDS: Furosemide 40 MG TAB PO SCH (08:29)
[2019-05-16] MEDS ORDERED: Amlodipine 5 MG TAB PO SCH (09:00)
--- NOTE | 2019-05-16 13:12 | PDOC.CPN ---
- Subjective Date: 05/16/19 Time: 09:00 Interval history: The pt seen and examined. No overnight events. No cardiac complaints. - Objective Allergies/Adverse Reactions: Allergies Allergy/AdvReac Type Severity Reaction Status Date / Time No Known Drug Allergies Allergy Verified 05/10/19 11:54 Visit Medications: Current Medications Acetaminophen (Tylenol) 650 mg PO Q6H PRN PRN Reason: Headache/Fever/Pain (1-3) Hydrocodone Bitart/Acetaminophen ([place] 5/325) 1 tab PO Q4H PRN PRN Reason: Moderate Pain (4-6) Last Admin: 05/14/19 19:02 Dose: 1 tab Hydrocodone Bitart/Acetaminophen ([place] 5/325) 2 tab PO Q4H PRN PRN Reason: Severe Pain (7-10) Last Admin: 05/16/19 08:30 Dose: 2 tab Al Hydroxide/Mg Hydroxide (Maalox) 30 ml PO Q4H PRN PRN Reason: Indigestion Albuterol/Ipratropium (Duoneb) 3 ml NEB Q6H PRN PRN Reason: Respiratory Distress Amlodipine Besylate (Norvasc) 5 mg PO DAILY [facility] Last Admin: 05/16/19 08:29 Dose: 5 mg Aspirin (Ecotrin) 325 mg PO DAILY [facility] Last Admin: 05/16/19 08:29 Dose: 325 mg Atorvastatin Calcium (Lipitor) 10 mg PO HS [facility] Last Admin: 05/15/19 20:38 Dose: 10 mg Bisacodyl (Dulcolax) 10 mg PO Q12H PRN PRN Reason: Constipation Last Admin: 05/16/19 08:31 Dose: 10 mg Bisacodyl (Dulcolax) 10 mg VT Q12H PRN PRN Reason: Constipation Famotidine (Pepcid) 20 mg PO BID [facility] Last Admin: 05/16/19 08:29 Dose: 20 mg Furosemide (Lasix) 40 mg PO DAILY [facility] Last Admin: 05/16/19 08:29 Dose: 40 mg Glucagon (Glucagon) 1 mg SC PRN PRN PRN Reason: PER HYPOGLYCEMIC PROTOCOL Guaifenesin/Dextromethorphan (Robitussin Dm) 15 ml PO Q4H PRN PRN Reason: Cough Magnesium Hydroxide (Milk Of Magnesium) 30 ml PO Q12H PRN PRN Reason: Constipation Mineral Oil (Fleet Mineral Oil) 133 ml [place] DAILYPRN PRN PRN Reason: Constipation Nitroglycerin (Nitrostat) 0.4 mg SL Q5MIN PRN PRN Reason: Chest Pain Ondansetron HCl (Zofran) 4 mg IVP Q6H PRN PRN Reason: Nausea/Vomiting Polyethylene Glycol (Miralax) 17 gm PO DAILY [facility] Last Admin: 05/16/19 08:28 Dose: 17 gm Potassium Chloride (Klor-Con 10) 10 meq PO QAM-WM [facility] Last Admin: 05/16/19 08:28 Dose: 10 meq Vital Signs & Weight: Vital Signs Temp Pulse Pulse Pulse Resp BP BP 05/16/19 11:22 98.4 F 66 16 05/16/19 10:14 73 64 135/77 109/65 05/16/19 08:29 69 05/16/19 07:53 05/16/19 07:01 99.0 F 69 18 05/16/19 03:10 99.4 F 66 18 BP Pulse Ox Pulse Ox Pulse Ox 05/16/19 11:22 114/62 94 L 05/16/19 10:14 92 L 95 05/16/19 08:29 05/16/19 07:53 95 05/16/19 07:01 126/71 95 05/16/19 03:10 143/71 H 97 Weight 224 lb 11.2 oz - Quality Measures CV meds: Beta Varinder: No (pt. has bradycardia), JOSEFINA/ARB: Yes, Statin: Yes, ASA : Yes - Physical Exam General: alert & oriented x3 HEENT: mucus membranes moist Neck: supple neck Cardiac: regular rate and rhythm, S1/S2 Lungs: clear to auscultation, decreased breath sounds Neuro: cranial nerve 2-12 intact - Labs Result Diagrams: 05/14/19 03:45 05/14/19 03:45 - Telemetry Sinus rhythms and dysrhythmias: sinus rhythm - Assessment/Plan Assessment/Plan: 1. CAD with S/P CABG on 05/13/2019 with [id number] and SVG-diag - BBlocker is on hold due to bradycardia. On ASA, Statin. 2. HTN - On Norvasc. Hold betablockers due to bradycardia. 3. Bradycardia. Asymptomatic. 4. HLD - LDL in 2018 was 161; on Lipitor 10mg qd. Will increase to 20mg qd. 5. Sleep Apnea - on Cpap at [facility] reviewed Pt. seen and eval. by me. I agree with the A/P by the EXPEDITER.He is doing well post CABG. O2 sats are in the 90's on room air. From a cardiology standpoint he can be d/c'd today. F/U in 1 month in the office.
[2019-05-16 15:23] VITALS: BP 119/66; TEMP 98.1
--- NOTE | 2019-05-16 17:27 | DIS ---
DATE OF ADMISSION: 05/13/2019 DATE OF DISCHARGE: 05/16/2019 The patient was admitted following a cardiac [facility]. On Monday of this week, where he underwent coronary artery bypass grafting x2. His postoperative course was unremarkable and he was discharged home on postoperative day 3 on aspirin, amlodipine 5, atorvastatin 20, and Maxzide, resuming his home medication there. He also received a prescription for [place]. Discharge and followup instructions have been given. Job ID: [id number]
[2019-05-16] MEDS ORDERED: Atorvastatin Calcium 20 MG TAB PO SCH (21:00)
== END 2019-05-16 16:53 | disposition home or self-care (01) | DRG 236 ==
LOC: SURG A 06:05 → CCU 09:39 → 2NO 05-14 09:37
PROVIDERS: ADMIT Thoracic Surgery (Cardiothoracic Vascular Surgery); ATTEND Thoracic Surgery (Cardiothoracic Vascular Surgery)
PROC: 02100Z9 Bypass Coronary Artery, One Artery from Left Internal Mammary, Open Approach (ICD-10-PCS; principal; 2019-05-13)
PROC: 021009W Bypass Coronary Artery, One Artery from Aorta with Autologous Venous Tissue, Open Approach (ICD-10-PCS; 2019-05-13)
PROC: 06BQ0ZZ Excision of Left Saphenous Vein, Open Approach (ICD-10-PCS; 2019-05-13)
PROC: 5A1221Z Performance of Cardiac Output, Continuous (ICD-10-PCS; 2019-05-13)
DX: I25.10 Atherosclerotic heart disease of native coronary artery without angina pectoris (principal); I08.0 Rheumatic disorders of both mitral and aortic valves; I10 Essential (primary) hypertension; E11.9 Type 2 diabetes mellitus without complications; G47.30 Sleep apnea, unspecified; E78.5 Hyperlipidemia, unspecified; R00.1 Bradycardia, unspecified; R03.1 Nonspecific low blood-pressure reading; Z98.84 Bariatric surgery status
CPT/HCPCS: 36415; 36416; 36430; 71045; 80048; 82805; 85025; 85610; 85730; 86850; 86900; 86901; 93005; 93010; 93798; 94002; 94150; J0690; J1644; J1815; J1885; J2001; J2250; J2270; J2440; J2704; J2720; J3010; J3370; J3475; J3480; P9045; S0017; S0028

== ENCOUNTER 2021-05-31 12:43 | Outpatient (CLI) | payer MEDICARE ==
[2021-05-31 13:42] LABS: #Eosinphils 0.4 10x3/uL (0.0-0.5); #Monocytes 0.4 10x3/uL (0.0-1.1); #Neutrophils 5.7 10x3/uL (1.5-8.4); %Basophils 0.5 % (0.0-2.0); %Eosinophils 4.2 % (0.0-6.0); %Lymphocytes 25.8 % (18.0-47.0); %Monocytes 4.2 % (0.0-10.0); Hemoglobin 13.9 g/dL (13.5-17.5); Mean Corpuscular HGB CONC 34.1 g/dL (32.0-36.0); Mean Corpuscular Hemoglobin 32.7 pg (27.0-33.0); Mean Platelet Volume 9.4 fl (7.4-10.4); Platelet Count 183 10x3/uL (150-450); RBC Distribution Width 13.4 % (11.5-14.5); Red Blood Cell (RBC) Count 4.25 10x6/uL (4.32-5.72); White Blood Cell (WBC) Count 8.7 10x3/uL (3.5-10.5)
[2021-05-31 14:13] LABS: ALT (SGPT) 22 U/L (8-55); AST (SGOT) 21 U/L (5-34); Albumin 4.1 g/dL (3.4-4.8); Alkaline Phosphatase 62 U/L (40-110); Anion Gap 14 mmol/L (10-20); BUN (Urea Nitrogen) 22 mg/dL (8.4-25.7); Bilirubin, Total 0.5 mg/dL (0.2-1.2); Calc. Creatinine Clearance 0 mL/min (70-130); Calcium 9.4 mg/dL (7.8-10.44); Carbon Dioxide 27 mmol/L (23-31); Chloride 105 mmol/L (98-107); Glucose 154 mg/dL (80-115); Potassium 3.8 mmol/L (3.5-5.1); Protein, Total 7.1 g/dL (5.8-8.1); Sodium 142 mmol/L (136-145)
[2021-05-31 23:33] LABS: SARS-CoV-2 PCR by NAA Not Detected (NotDetected)
== END 2021-05-31 12:44 | disposition home or self-care (01) ==
LOC: LABBT 12:43
PROVIDERS: ATTEND Internal Medicine Cardiovascular Disease
DX: Z01.812 Encounter for preprocedural laboratory examination (principal); Z20.822 Contact with and (suspected) exposure to COVID-19
CPT/HCPCS: 80053; 85025; U0003; U0005

== ENCOUNTER → 2021-06-02 | Day surgery (SDC) | payer MEDICARE ==
[2021-05-31 13:42] VITALS: BMI 28.8
[~2021-06-02] MED LIST: Atropine Sulfate 1 mg/10 ml Syringe ONE; Iopamidol 370 76% 100 ML VIAL ONE; Lidocaine 1% (PF) 30 ML VIAL ONE; Lisinopril 10 MG TAB ONE; Midazolam HCl 2 mg/2 ml Vial ONE
[2021-06-02 07:45] LABS: Cardiac Risk 2.9 (Less than 4.5)
== END | disposition home or self-care (01) ==
LOC: SDC 05:53
PROVIDERS: ATTEND Internal Medicine Cardiovascular Disease
PROC: 4A023N7 Measurement of Cardiac Sampling and Pressure, Left Heart, Percutaneous Approach (ICD-10-PCS; principal; 2021-06-02)
PROC: B2111ZZ Fluoroscopy of Multiple Coronary Arteries using Low Osmolar Contrast (ICD-10-PCS; 2021-06-02)
PROC: B2181ZZ Fluoroscopy of Left Internal Mammary Bypass Graft using Low Osmolar Contrast (ICD-10-PCS; 2021-06-02)
PROC: B2121ZZ Fluoroscopy of Single Coronary Artery Bypass Graft using Low Osmolar Contrast (ICD-10-PCS; 2021-06-02)
DX: R94.39 Abnormal result of other cardiovascular function study (principal); R06.02 Shortness of breath; R53.83 Other fatigue; I25.10 Atherosclerotic heart disease of native coronary artery without angina pectoris; I10 Essential (primary) hypertension; E78.2 Mixed hyperlipidemia; E11.9 Type 2 diabetes mellitus without complications; J44.9 Chronic obstructive pulmonary disease, unspecified; K21.9 Gastro-esophageal reflux disease without esophagitis; G47.30 Sleep apnea, unspecified; E66.9 Obesity, unspecified; Z68.28 Body mass index [BMI] 28.0-28.9, adult; Z79.82 Long term (current) use of aspirin; Z79.899 Other long term (current) drug therapy; Z95.1 Presence of aortocoronary bypass graft; Z98.84 Bariatric surgery status
CPT/HCPCS: 80061; 93459; 99152; 99153; J0461; J2001; J2250; Q9967

== ENCOUNTER 2024-01-02 04:06 | Emergency (ER) | payer MEDICARE ==
[2024-01-02] MEDS ORDERED: Ipratropium/Albuterol 3 ML NEB ONE (04:37)
[2024-01-02] MEDS ORDERED: predniSONE 20 MG TAB ONE (04:38)
[2024-01-02] MEDS ORDERED: Doxycycline 100 MG CAP ONE (04:38)
[2024-01-02 04:57] LABS: #Basophils 0.03 10x3/uL (0.0-0.2); %Basophils 0.7 % (0.0-1.0); %Eosinophils 11.4 % (0.0-10.0); %Lymphocytes 34.4 % (21.0-51.0); %Monocytes 12.6 % (0.0-10.0); %Neutrophils 40.7 % (42.0-75.0); Hematocrit 39.2 % (42.0-52.0); Hemoglobin 13.2 g/dL (14.0-18.0); Mean Corpuscular HGB CONC 33.7 g/dL (32.0-36.0); Mean Corpuscular Hemoglobin 32.6 pg (27.0-31.0); Mean Corpuscular Volume 96.8 fL (78.0-98.0); Mean Platelet Volume 9.2 fL (7.4-10.4); Platelet Count 167 10x3/uL (130-400); RBC Distribution Width 12.6 % (11.5-14.5); Red Blood Cell (RBC) Count 4.05 mill/uL (4.70-6.10)
[2024-01-02 05:11] LABS: ALT (SGPT) 23 U/L (8-55); AST (SGOT) 23 U/L (5-34); Albumin 3.7 g/dL (3.4-4.8); Alkaline Phosphatase 65 U/L (40-110); Anion Gap 15 mmol/L (10-20); BUN (Urea Nitrogen) 19 mg/dL (8.4-25.7); Bilirubin, Total 0.5 mg/dL (0.2-1.2); Calc. Creatinine Clearance 0 mL/min (70-130); Carbon Dioxide 26 mmol/L (23-31); Chloride 105 mmol/L (98-107); Estimated GFR 92; Globulin 3.5 g/dL (2.4-3.5); Glucose 135 mg/dL (83-110); Potassium 3.6 mmol/L (3.5-5.1); Protein, Total 7.2 g/dL (5.8-8.1); Sodium 142 mmol/L (136-145)
[2024-01-02 05:54] LABS: Troponin I Less than 0.010 ng/mL (< 0.028)
== END 2024-01-02 06:08 | disposition home or self-care (01) ==
LOC: ERS 04:06
DX: J18.9 Pneumonia, unspecified organism (principal)
CPT/HCPCS: 36415; 71045; 80053; 83880; 84484; 85025; 87428; 93005; 94640; 94760; J7512; J7620

== ENCOUNTER 2024-07-24 09:19 | Outpatient (CLI) | payer MEDICARE ==
[2024-07-24 09:59] LABS: #Basophils 0.04 10x3/uL (0.0-0.2); #Eosinophils 0.25 10x3/uL (0.0-0.7); #Monocytes 0.48 10x3/uL (0.11-0.59); #Neutrophils 3.39 10x3/uL (1.40-6.50); %Basophils 0.7 % (0.0-1.0); %Eosinophils 4.3 % (0.0-10.0); %Lymphocytes 28.8 % (21.0-51.0); %Monocytes 8.2 % (0.0-10.0); %Neutrophils 57.8 % (42.0-75.0); Hematocrit 40.9 % (42.0-52.0); Hemoglobin 13.7 g/dL (14.0-18.0); Mean Corpuscular HGB CONC 33.5 g/dL (32.0-36.0); Mean Corpuscular Hemoglobin 31.9 pg (27.0-31.0); Mean Corpuscular Volume 95.1 fL (78.0-98.0); Platelet Count 218 10x3/uL (130-400); RBC Distribution Width 12.3 % (11.5-14.5); White Blood Cell (WBC) Count 5.86 10x3/uL (4.8-10.8)
[2024-07-24 10:15] LABS: Hemoglobin A1c 6.4 % (4.0-6.0)
[2024-07-24 10:16] LABS: ALT (SGPT) 26 U/L (Less than 45); AST (SGOT) 33 U/L (11-34); Albumin 4.4 g/dL (3.1-4.5); Alkaline Phosphatase 65 U/L (40-110); Anion Gap 13 mmol/L (10-20); BUN (Urea Nitrogen) 31 mg/dL (8.4-25.7); Bilirubin, Total 0.7 mg/dL (0.3-1.2); Calc. Creatinine Clearance 0 mL/min (70-130); Calcium 10.5 mg/dL (7.8-10.44); Carbon Dioxide 29 mmol/L (23-31); Chloride 100 mmol/L (98-107); Estimated GFR 79; Globulin 3.3 g/dL (2.4-3.5); Glucose 108 mg/dL (83-110); Protein, Total 7.7 g/dL (5.8-8.1); Sodium 138 mmol/L (136-145)
== END 2024-07-24 09:20 | disposition home or self-care (01) ==
LOC: LABBT 09:19
PROVIDERS: ATTEND Surgery
DX: Z01.818 Encounter for other preprocedural examination (principal); K44.9 Diaphragmatic hernia without obstruction or gangrene; K21.9 Gastro-esophageal reflux disease without esophagitis
CPT/HCPCS: 71046; 80053; 83036; 85025; 93005; 93010